=== PATIENT | female | born 2000 | race Hispanic/Latino ===

== ENCOUNTER 2023-12-19 05:59 | Inpatient (IN) | payer MEDICAID, OTHER ==
[2023-12-19] MEDS ORDERED: Lidocaine 1% (PF) 30 ML VIAL SC PRN (06:56)
[2023-12-19] MEDS ORDERED: Misoprostol 200 MCG TAB PR PRN (06:56)
[2023-12-19] MEDS ORDERED: HYDROcodone/Acetaminophen 5/325 mg Tablet PO PRN (06:56)
[2023-12-19] MEDS ORDERED: Oxytocin 30 units/NS 500 ML 500 ML IV SCH ×3 (06:56)
[2023-12-19] MEDS ORDERED: Promethazine HCl 25 MG/ML VIAL IM PRN ×2 (06:56→14:07)
[2023-12-19] MEDS ORDERED: Carboprost 250 MCG/ML AMP IM PRN (06:56)
[2023-12-19] MEDS ORDERED: hydrALAZINE 20 MG/ML VIAL SLOW IVP PRN (06:56)
[2023-12-19] MEDS ORDERED: Acetaminophen 500 MG TAB PO PRN (06:56)
[2023-12-19] MEDS ORDERED: Lactated Ringer's 1,000 ML IV SCH (06:56)
[2023-12-19] MEDS ORDERED: Diphenoxylate HCl/Atropine Tablet PO PRN (06:56)
[2023-12-19] MEDS ORDERED: fentaNYL 50 mcg/mL 1 mL Vial SLOW IVP PRN (06:56)
[2023-12-19] MEDS ORDERED: Methylergonovine 0.2 MG/ML VIAL IM PRN (06:56)
[2023-12-19] MEDS ORDERED: Ondansetron PF 4 MG/2 ML Vial IVP PRN ×2 (06:56→14:07)
[2023-12-19] MEDS ORDERED: Tranexamic Acid 1,000 MG/10 ML VIAL IVP PRN (06:56)
[2023-12-19] MEDS ORDERED: Lidocaine 2% MPF 10 ML AMP (For Epidural Use) ONE (08:00)
[2023-12-19] MEDS ORDERED: Bupivacaine HCl 0.5%/Epinephrine 1:200,000/PF 30 ml Vial ONE (08:00)
[2023-12-19] MEDS ORDERED: Bupivacaine/Epinephrine 0.25% 30 ML VIAL ONE (08:00)
[2023-12-19] MEDS ORDERED: Bupivacaine 0.25% HCL 30 ML VIAL ONE (08:00)
[2023-12-19 08:10] LABS: Hematocrit 36.7 % (34.9-44.5); Mean Corpuscular HGB CONC 32.7 g/dL (32.0-36.0); Mean Corpuscular Hemoglobin 29.8 pg (27.0-33.0); Mean Corpuscular Volume 91.1 fL (81.6-98.3); Mean Platelet Volume 9.9 fL (7.4-10.4); Platelet Count 297 10x3/uL (150-450); RBC Distribution Width 14.5 % (11.5-14.5); Red Blood Cell (RBC) Count 4.03 10x6/uL (3.90-5.03); White Blood Cell (WBC) Count 10.8 10x3/uL (3.5-10.5)
[2023-12-19 08:19] VITALS: BMI 34.0
[2023-12-19 08:55] LABS: HBsAg Index 0.25 S/CO (0-0.99); Hep B Surf Ag - L&D Non-Reactive S/CO (NonReactive)
[2023-12-19 08:56] LABS: Syphilis Antibody Nonreactive (Nonreactive); Syphilis Antibody Index 0.03 S/CO (<1.00 Non-Reactive)
[2023-12-19] MEDS ORDERED: Lactated Ringer's 500 ML IV PRN (14:07)
[2023-12-19] MEDS ORDERED: Naloxone HCl 0.4 mg/ml Vial IVP PRN ×2 (14:07)
[2023-12-19] MEDS ORDERED: ePHEDrine Sulfate 50 MG/10 ML VIAL SLOW IVP PRN (14:07)
[2023-12-19] MEDS ORDERED: diphenhydrAMINE 50 MG/ML VIAL IVP PRN (14:07)
[2023-12-19] MEDS ORDERED: Moisturizing Cream (Eucerin) 113 GM JAR TOP PRN (14:07)
[2023-12-19] MEDS ORDERED: Acetaminophen 325 MG TAB PO PRN (14:07)
[2023-12-19] MEDS ORDERED: Communication Order-Pharmacy FS SCH (14:15)
[2023-12-19] MEDS ORDERED: fentaNYL 2 mcg/Ropivacaine 0.2% Epidural 100 ML CADD EPIDURAL SCH (14:15)
[2023-12-20] MEDS: Ibuprofen 800 MG TAB PO PRN (00:13)
[2023-12-20] MEDS ORDERED: Lanolin Ointment 7 GM TUBE TOP PRN (03:16)
[2023-12-20] MEDS ORDERED: Bisacodyl 10 MG SUPP PR PRN (03:16)
[2023-12-20] MEDS ORDERED: Boostrix 0.5 ML (Tdap) VIAL (>/=7 yrs of age) IM ONE (03:16)
[2023-12-20] MEDS ORDERED: diphenhydrAMINE 25 MG CAP PO PRN (03:16)
[2023-12-20] MEDS ORDERED: Ondansetron PF 4 MG/2 ML Vial IVP PRN (03:16)
[2023-12-20] MEDS ORDERED: hydrALAZINE 20 MG/ML VIAL SLOW IVP PRN (03:16)
[2023-12-20] MEDS ORDERED: Milk Of Magnesia 30 ML UDCUP PO PRN (03:16)
[2023-12-20] MEDS: fentaNYL/Ropivacaine Epidural 100 ML ONE (03:23)
[2023-12-20] MEDS: Oxytocin 30 units/NS 500 ML 500 ML ONE (03:23)
[2023-12-20] MEDS: Benzocaine-Menthol 82.5 ML CAN TOP PRN (03:30)
[2023-12-20] MEDS: Ibuprofen 800 MG TAB PO SCH (06:02)
[2023-12-20] MEDS: Ferrous Sulfate 325 MG TAB PO SCH (09:00)
[2023-12-20] MEDS: Prenatal Vitamin 1 TAB PO SCH (09:18)
[2023-12-20] MEDS: HYDROcodone/Acetaminophen 5/325 mg Tablet PO PRN (09:19)
[2023-12-20] MEDS: Docusate 100 MG CAP PO SCH (09:19)
[2023-12-21 07:37] VITALS: BP 109/60; TEMP 97.7
== END 2023-12-21 17:30 | disposition home or self-care (01) | DRG 807 ==
LOC: CSHLD 05:59 → CSHPP 12-20 02:35
PROVIDERS: ADMIT Family Medicine; ATTEND Family Medicine
PROC: 10E0XZZ Delivery of Products of Conception, External Approach (ICD-10-PCS; principal; 2023-12-20)
PROC: 10907ZC Drainage of Amniotic Fluid, Therapeutic from Products of Conception, Via Natural or Artificial Opening (ICD-10-PCS; 2023-12-20)
PROC: 3E033VJ Introduction of Other Hormone into Peripheral Vein, Percutaneous Approach (ICD-10-PCS; 2023-12-20)
DX: O80 Encounter for full-term uncomplicated delivery (principal); Z37.0 Single live birth; Z3A.39 39 weeks gestation of pregnancy; Z79.82 Long term (current) use of aspirin
CPT/HCPCS: 51702; 85027; 86780; 86850; 86900; 86901; 87340; J0665